=== PATIENT | female | born 2005 | race Caucasian/White ===

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

== ENCOUNTER 2025-02-17 13:22 | Emergency (ER) | payer MEDICAID, SELFPAY ==
[2025-02-17 13:26] VITALS: BP 126/84; PULSE 101; RESP 18; TEMP 37.2; O2SAT 99
[2025-02-17 13:31] VITALS: BP 161/101; PULSE 58; RESP 18; O2SAT 94
--- NOTE | 2025-02-17 13:38 | W.ED.ABDPA2 ---
HPI - Abdominal Pain General: Chief Complaint: Abdominal Pain Stated Complaint: vomiting blood Time Seen by Provider: 02/17/25 13:36 History of Present Illness: 19-year-old female presents emergency room complaining of intermittent hematemesis. Patient reports that she had been vomiting multiple times a day she had an episode initially she threw up some bright red blood mixed with dark material since then it has decreased significantly. She has not had any lightheadedness or dizziness. She is 6 weeks since her last menstrual period she is sexually active with no form of control Associated Symptoms: Reports hematemesis, nausea and vomiting; Denies chills, coffee ground emesis, dysuria, fever(s), hematochezia and melena Related Data Previous Rx's ?Medication ?Instructions ?Recorded ibuprofen 800 mg tablet 800 mg PO TID #45 tabs 09/18/23 vits no.130-ferrous fum 1 tab PO DAILY #90 tabs 09/18/23 27 mg iron-folic acid 800 mcg tablet ( Vitamin) ondansetron HCl 4 mg tablet 4 mg PO Q6H PRN nausea and 02/17/25 vomiting #20 tabs pantoprazole 40 mg tablet,delayed 40 mg PO DAILY #30 tabs 02/17/25 release (Protonix) Allergies Allergy/AdvReac Type Severity Reaction Status Date / Time No Known Allergies Allergy Verified 09/10/20 09:41 Review of Systems Const: Denies: fever(s) or chills Card: Denies: chest pain Resp: Denies: dyspnea GI: Reports: abdominal pain, nausea, vomiting and hematemesis; Denies: coffee ground emesis, hematochezia or melena : Denies: dysuria, urinary frequency or urinary urgency Musc: Denies: neck pain or back pain Skin/Breast: Denies: rash PFSH ED PFSH: Medical History Substance abuse Adjustment disorder Physical Exam Const: GENERAL APPEARANCE: cooperative ORIENTATION/CONSCIOUSNESS: Yes awake, Yes oriented to person, Yes oriented to place and Yes oriented to time HENMT: COMMON NORMALS: normocephalic, atraumatic and hearing grossly normal bilaterally HEAD & SCALP: normocephalic and atraumatic Resp: COMMON NORMALS: normal respiratory effort, No retractions, No use of accessory muscles and clear to auscultation bilaterally AUSCULTATION: clear to auscultation bilaterally Cardio: COMMON NORMALS: regular rate, regular rhythm and No murmurs present (Cardio) RATE: regular rate RHYTHM: regular rhythm GI: COMMON NORMALS: Soft to palpation and No hepatosplenomegaly present AUSCULTATION: Yes normoactive bowel sounds PALPATION: Yes Soft to palpation, No Tenderness to palpation present (GI), No Guarding due to palpation present (GI) and Yes No hepatosplenomegaly present Extremity: COMMON NORMALS: normal to inspection, capillary refill normal, no clubbing, cyanosis or edema, no calf tenderness and no pedal edema Neuro: SENSORIUM/ORIENTATION: Yes oriented to person, Yes oriented to place and Yes oriented to time Skin: COMMON NORMALS: no rashes or lesions noted GENERAL SKIN EXAM: no rashes or lesions noted Course Vital Signs: Vital signs: Vital Signs Temperature 98.9 F 02/17/25 13:26 Pulse Rate 77 02/17/25 14:51 Respiratory Rate 18 02/17/25 13:31 Blood Pressure 109/75 02/17/25 14:51 Pulse Oximetry 99 02/17/25 14:51 Oxygen Delivery Me thod Room Air 02/17/25 14:51 MDM - Abdominal Pain Medical Decision Making Abdominal exam benign. Patient is based on lab work based on her history suspect she is approximately 7 to 8 weeks gestation. Continue vitamins she is given ondansetron to use as needed also started on pantoprazole. Discharge home and have her follow-up with [facility] as soon as she is able. Laboratory test reviewed no evidence of acute upper GI bleed BUN normal hemoglobin stable at 13 7. Patient reports she has been having decreased episodes of blood-streaked vomitus but she still is having nausea vomiting at times. Medical Records I reviewed the patient's medical records. Lab Data I reviewed the patient's lab results. 02/17/25 14:06 02/17/25 14:06 Labs/Radiology: Laboratory Results WBC 6.29 10^3/uL (4.5-13.0) 02/17/25 14:06 RBC 4.62 10^6/uL (3.85-5.65) 02/17/25 14:06 Hgb 13.70 g/dL (12.4-14.8) 02/17/25 14:06 Hct 40.1 % (36-47) 02/17/25 14:06 MCV 86.8 fl (85-98) 02/17/25 14:06 MCH 29.7 pg (27-33) 02/17/25 14:06 MCHC 34.2 g/dL (30-55) 02/17/25 14:06 RDW 12.1 % (12.1-15.1) 02/17/25 14:06 Plt Count 233 10^3/cmm (157-399) 02/17/25 14:06 MPV 10.4 fL (7.4-10.4) 02/17/25 14:06 Neut % (Auto) 64.4 % 02/17/25 14:06 Lymph % (Auto) 27.0 % 02/17/25 14:06 [place] % (Auto) 7.5 % 02/17/25 14:06 Eos % (Auto) 0.3 % 02/17/25 14:06 Baso % (Auto) 0.5 % 02/17/25 14:06 Neut # (Auto) 4.05 10^3/uL (1.8-8.0) 02/17/25 14:06 Lymph # (Auto) 1.7 10^3/uL (1.5-6.5) 02/17/25 14:06 [place] # (Auto) 0.5 10^3/uL (0.2-0.9) 02/17/25 14:06 Eos # (Auto) 0.0 10^3/uL (0.0-0.8) 02/17/25 14:06 Baso # (Auto) 0.0 10^3/uL (0.0-0.1) 02/17/25 14:06 Nucleated RBC % (auto) 0 % 02/17/25 14:06 Nucleated RBCs # 0.0 /100WBC 02/17/25 14:06 Sodium 140 mmol/L (136-145) 02/17/25 14:06 Potassium 3.7 mmol/L (3.5-5.1) 02/17/25 14:06 Chloride 105 mmol/L (98-107) 02/17/25 14:06 Carbon Dioxide 23 mmol/L (22-29) 02/17/25 14:06 Anion Gap 15.7 (5-19) 02/17/25 14:06 BUN 6 mg/dL (6-20) 02/17/25 14:06 Creatinine 0.6 mg/dL (0.5-0.9) 02/17/25 14:06 GFR Calculation 128.8 mL/min (90-130) 02/17/25 14:06 Glucose 61 mg/dL (65-115) L 02/17/25 14:06 Calculated Osmolality 286 mOsm/kg (285-295) 02/17/25 14:06 Calcium 9.1 mg/dL (8.5-10.5) 02/17/25 14:06 Total Bilirubin 0.3 mg/dL (0.15-1.2) 02/17/25 14:06 AST 12 U/L (0-32) 02/17/25 14:06 ALT 9 U/L (0-33) 02/17/25 14:06 Alkaline Phosphatase 56 U/L (35-105) 02/17/25 14:06 Total Protein 7.5 g/dL (6.6-8.7) 02/17/25 14:06 Albumin 4.5 g/dL (3.5-5.2) 02/17/25 14:06 Globulin 3.0 g/dL (1.3-4.6) 02/17/25 14:06 Lipase 41 U/L (13-60) 02/17/25 14:06 HCG, Qual Positive (Negative) H 02/17/25 14:06 Urine Color Yellow (Yellow) 02/17/25 14:00 Urine Appearance Turbid (CLEAR) A 02/17/25 14:00 Urine pH 7.5 (5-7) 02/17/25 14:00 Ur Specific [place] 1.013 (1.005-1.030) 02/17/25 14:00 Urine Protein Negative (Negative) 02/17/25 14:00 Urine Glucose (UA) Negative (Normal) 02/17/25 14:00 Urine Ketones Negative (Negative) 02/17/25 14:00 Urine Blood Negative (Negative) 02/17/25 14:00 Urine Nitrate Negative (Negative) 02/17/25 14:00 Urine Bilirubin Negative (Negative) 02/17/25 14:00 Urine Urobilinogen 1.0 mg/dL (Negative) 02/17/25 14:00 Ur Leukocyte Esterase 2+ (Negative) A 02/17/25 14:00 Urine RBC 0-4 /hpf (0-2) H 02/17/25 14:00 Urine WBC 5-10 /hpf (0-5) H 02/17/25 14:00 Ur Squamous Epith Cells 15-25 /hpf (0-5) H 02/17/25 14:00 Amorphous Sediment Not Reportable 02/17/25 14:00 Urine Bacteria 2+ /hpf (NONE) H 02/17/25 14:00 Hyaline Casts 0-4 /lpf H 02/17/25 14:00 Coarse Granular Casts 5-10 /lpf H 02/17/25 14:00 Urine Mucus 1+ /hpf 02/17/25 14:00 No radiology studies performed this visit Discharge Plan Discharge Patient Disposition: Home Clinical Impression: Hyperemesis gravidarum, Condition: Stable Prescriptions: New pantoprazole [Protonix] 40 mg tablet,delayed release (DR/EC) 40 mg PO DAILY Qty: 30 0RF ondansetron HCl 4 mg tablet 4 mg PO Q6H PRN (Reason: nausea and vomiting) Qty: 20 0RF No Action ibuprofen 800 mg Tablet 800 mg PO TID Qty: 45 0RF Vitamin 27 mg iron- 800 mcg Tablet 1 tab PO DAILY Qty: 90 0RF Discharge Orders: Discharge ED (Routine); Ordered 02/17/25 Ordered By: Parth Crocker Discharge Diet: As Directed Discharge Activity: Resume usual activity Patient Instructions: Opioid Safety, Pain Management, Patient Portal & Rosa Instructions Activity Restrictions/Additional Instructions: Thank you for choosing [facility] for your healthcare needs today. It is very important that you follow up as instructed or that you return to the Emergency Department should you have concerns or if your condition changes or worsens in any way. Emergency department visits are focused on emergent conditions, in some cases you may require further evaluation on an outpatient basis. You were seen in the emergency room complaining of throwing up blood. Hemoglobin stable your other labs did not indicate active ongoing bleeding. You were found to be which is is what is likely precipitating the persistent nausea and vomiting. You are given ondansetron and pantoprazole. Pantoprazole is to protect the lining of your stomach and dantron is for nausea and vomiting. Continue take vitamins and follow-up with your doctor as soon as you are able (Please note that included in your discharge packet is information concerning opioid safety and pain management. This information is given to all patients were discharged from the ER regardless of their discharge diagnosis or the medicines they usually take or are prescribed.) Print Language: Persian Coding Level of Care Code ED At Risk Specialist for Carlos Eduardo Harding
[2025-02-17 14:14] LABS: Glucose Urine UA Negative (Normal); Nitrate Urine Negative (Negative); Specific Gravity, Urine 1.013 (1.005-1.030)
[2025-02-17 14:17] LABS: Hematocrit 40.1 % (36-47); Hemoglobin 13.70 g/dL (12.4-14.8); Mean Corpuscular HGB Conc 34.2 g/dL (30-55); Mean Corpuscular Hemoglobin 29.7 pg (27-33); Mean Corpuscular Volume 86.8 fl (85-98); Nucleated Red Blood Cells % 0 %; Platelet Count 233 10^3/cmm (157-399); Red Blood Count 4.62 10^6/uL (3.85-5.65); White Blood Count 6.29 10^3/uL (4.5-13.0)
[2025-02-17 14:25] LABS: UA Manual Slide Review YES
[2025-02-17 14:26] LABS: Add Urine Microscopic? YES
[2025-02-17 14:29] LABS: HCG, Serum Qual Positive (Negative)
[2025-02-17 14:31] LABS: Alanine Aminotransferase 9 U/L (0-33); Albumin Level 4.5 g/dL (3.5-5.2); Alkaline Phosphatase 56 U/L (35-105); Anion Gap 15.7 (5-19); Aspartate Amino Transferase 12 U/L (0-32); Blood Urea Nitrogen 6 mg/dL (6-20); Calcium 9.1 mg/dL (8.5-10.5); Carbon Dioxide 23 mmol/L (22-29); Chloride 105 mmol/L (98-107); Creatinine Clr Calc Pharmacy 125.8236; Globulin 3.0 g/dL (1.3-4.6); Glucose 61 mg/dL (65-115); Lipase 41 U/L (13-60); Osmolality Calculated 286 mOsm/kg (285-295); Potassium 3.7 mmol/L (3.5-5.1); Sodium 140 mmol/L (136-145); Total Protein 7.5 g/dL (6.6-8.7)
[2025-02-17 14:51] VITALS: BP 109/75; PULSE 77; O2SAT 99
== END 2025-02-17 15:03 | disposition home or self-care (01) ==
PROVIDERS: Emergency Provider Family Medicine
DX: O21.0 Mild hyperemesis gravidarum (principal); Z3A.01 Less than 8 weeks gestation of pregnancy
CPT/HCPCS: 80053; 81001; 83690; 84703; 85025; 99283